=== PATIENT | male | born 1995 | race Caucasian/White ===

== ENCOUNTER 2025-01-13 22:32 | Emergency (ER) | payer OTHER ==
[~2025-01-13] VITALS: Ht 188 cm; Wt 72.6 kg
[2025-01-14 00:31] VITALS: BP 126/80
== END 2025-01-14 00:37 | disposition home or self-care (01) ==
LOC: ER 22:32
DX: S40.012A Contusion of left shoulder, initial encounter (principal); S00.03XA Contusion of scalp, initial encounter; V89.2XXA Person injured in unspecified motor-vehicle accident, traffic, initial encounter; F17.200 Nicotine dependence, unspecified, uncomplicated
CPT/HCPCS: 73030; 99284-25

== ENCOUNTER 2025-01-20 11:42 | Emergency (ER) | payer OTHER ==
[~2025-01-20] VITALS: Ht 188 cm; Wt 72.6 kg
[2025-01-20 11:47] VITALS: BP 122/76
== END 2025-01-20 12:30 | disposition home or self-care (01) ==
LOC: ER 11:42
DX: S06.0X0A Concussion without loss of consciousness, initial encounter (principal); V48.5XXA Car driver injured in noncollision transport accident in traffic accident, initial encounter; F17.200 Nicotine dependence, unspecified, uncomplicated
CPT/HCPCS: 70450; 99284-25